=== PATIENT | male | born 1995 | race Caucasian/White ===

== ENCOUNTER 2018-07-24 06:55 | Emergency (ER) | payer SELFPAY ==
[~2018-07-24] VITALS: Ht 182.9 cm; Wt 90.7 kg
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
[2018-07-24] MEDS ORDERED: NS 50 ML (IVPB) BAG IV ONE (07:15)
[2018-07-24] MEDS ORDERED: HYDROmorphone 2 MG/ML VIAL (DILAUDID) IV ONE (07:15)
[2018-07-24] MEDS ORDERED: ONDANSETRON 4 MG/2 ML (SDV) Z0FRAN IVP ONE (07:15)
[2018-07-24] MEDS ORDERED: HOLD METFORMIN - RECEIVED CONTRAST 20 ML VIAL IV SCH (07:15)
[2018-07-24] MEDS ORDERED: IOHEXOL 350 MG/ML 100 ML (OMNIPAQUE 350) VIAL IV ONE (07:15)
[2018-07-24 07:22] VITALS: BP 126/57
[2018-07-24] MEDS ORDERED: NS IV 1000 ML 1,000 ML IV STA (07:24)
[2018-07-24 07:31] LABS: HEMOGLOBIN 17.2 G/DL (13.3-17.7); MEAN PLATELET VOLUME 9.7 FL (7.4-10.4); RED CELL DISTRIBUTION WIDTH 11.9 % (10.0-14.5); WHITE BLOOD COUNT 8.9 10^3/uL (4.3-11.0)
[2018-07-24 07:57] LABS: BUN/CREATININE RATIO 15; CALCIUM 9.4 MG/DL (8.5-10.1); CHLORIDE 101 MMOL/L (98-107); CREATININE SERUM 1.15 MG/DL (0.60-1.30); GFR ESTIMATED > 60; GLUCOSE 114 MG/DL (70-105); POTASSIUM 3.9 MMOL/L (3.6-5.0); SODIUM 141 MMOL/L (135-145)
[2018-07-24 08:03] LABS: CARBON DIOXIDE 23 MMOL/L (21-32)
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
[2018-07-24 10:06] VITALS: BP 124/82
== END 2018-07-24 10:11 | disposition home or self-care (01) ==
LOC: ER FS 06:57
DX: S39.012A Strain of muscle, fascia and tendon of lower back, initial encounter (principal); S00.03XA Contusion of scalp, initial encounter; S29.9XXA Unspecified injury of thorax, initial encounter; S89.91XA Unspecified injury of right lower leg, initial encounter; Y04.8XXA Assault by other bodily force, initial encounter
CPT/HCPCS: 36415; 70450; 70490; 71260; 73590; 74177; 80048; 80320; 85027; 96374; 96375

== ENCOUNTER 2019-12-25 02:17 | Emergency (ER) | payer SELFPAY ==
[~2019-12-25] VITALS: Ht 188 cm; Wt 91.4 kg
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
[2019-12-25 03:49] VITALS: BP 146/80
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
== END 2019-12-25 03:49 | disposition home or self-care (01) ==
LOC: EDUNIT# 02:17 → ER FS 02:21
DX: S05.11XA Contusion of eyeball and orbital tissues, right eye, initial encounter (principal); Y09 Assault by unspecified means
CPT/HCPCS: 70486

== ENCOUNTER 2021-04-30 21:36 | Emergency (ER) | payer OTHER ==
[~2021-04-30] VITALS: Ht 190 cm; Wt 89.2 kg
[2021-04-30 23:52] LABS: CLARITY,URINE SL CLOUDY; COLOR,URINE OTHER; GLUCOSE, URINE (UA) TRACE (NEGATIVE); PH,URINE 6.5 (5-9); PROTEIN,URINE 2+ (NEGATIVE)
[2021-04-30 23:53] LABS: BACTERIA,URINE MODERATE /HPF; BILIRUBIN,URINE 2+ (NEGATIVE); KETONES,URINE NEGATIVE (NEGATIVE); LEUKOCYTE ESTERASE ,URINE NEGATIVE (NEGATIVE); NITRITE,URINE POSITIVE (NEGATIVE); SQUAMOUS EPITHELIAL CELL,UR 0-2 /HPF; WBC,URINE 0-2 /HPF
[2021-05-01] MEDS ORDERED: LIDOCAINE 1% INJ 20 ML VIAL INJ ONE (00:45)
[2021-05-01] MEDS ORDERED: AZITHROMYCIN 250 MG TAB (ZITHROMAX) PO ONE (00:45)
[2021-05-01] MEDS ORDERED: cefTRIAXone 1 GM PRE-MIX 50 ML IV ONE (00:45)
[2021-05-01] MEDS ORDERED: cefTRIAXone 1,000 MG VIAL IM ONE (00:45)
[2021-05-01] MEDS ORDERED: DOXY100T2 PO (00:57)
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
[2021-05-01 01:06] VITALS: BP 128/85
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
== END 2021-05-01 01:07 | disposition home or self-care (01) ==
LOC: EDUNIT# 21:36 → ER FS 21:37
DX: N39.0 Urinary tract infection, site not specified (principal)
CPT/HCPCS: 74176; 81000; 87088; 99284

== ENCOUNTER → 2021-04-30 | Outpatient (CLI) | payer OTHER ==
[~2021-04-30] MED LIST: DOXY100T2 PO
--- NOTE | 2021-04-30 17:43 | Diagnostic Imaging Report ---
Abdomen at 4:43. Indication: Right flank pain, hematuria. 2 supine views were obtained. There are no prior plain film examinations available for comparison. There is gas in both the large and small bowel in a nonspecific fashion. There is no evidence of bowel obstruction. There is a fair amount of fecal material throughout the colon. There is no mass or organomegaly identified. There are no pathological calcifications evident. However both kidneys are partially obscured by the overlying bowel gas and fecal material. The osseous structures are intact. Impression: 1. The bowel gas pattern is nonspecific. There is no acute abnormality identified. 2. There is a fair amount of fecal material throughout the colon. 3. If clinical concern regarding an obstructive ureteral calculus exists and further imaging is desired, then CT would be recommended. Dictated by: Dictated on workstation # [id number]
== END ==
LOC: RAD FS 16:34
PROVIDERS: ATTEND Nurse Practitioner Family
DX: R10.11 Right upper quadrant pain (principal); R31.9 Hematuria, unspecified
CPT/HCPCS: 74018